=== PATIENT | male | born 1995 | race Caucasian/White ===

== ENCOUNTER 2022-05-16 10:32 | Emergency (ER) | payer OTHER, SELFPAY ==
--- NOTE | ~2022-05-16 | XR_ITS ---
XR finger 2nd RT min 2V DATE: 05/16/2022 10:58 INDICATION: Smashed index finger. Swelling and pain. TECHNIQUE: 4 views COMPARISON: None FINDINGS: There is a comminuted intra-articular fracture of th extending into the midshaft of the mid dle phalanx of the second digit, with approximately 1 cortical width maximal dorsal displacement. No other fracture or dislocation. IMPRESSION: Comminuted intra-articular fracture of the base of the middle phalanx, extending into the midshaft Reviewed, dictated and finalized at location B. IMPRESSION: Comminuted intra-articular fracture of the base of the middle phala nx, extending into the midshaft
[2022-05-16 10:35] VITALS: BP 143/81; PULSE 91; RESP 20; TEMP 36.8; O2SAT 99
--- NOTE | 2022-05-16 10:46 | ED.GENADULT ---
HPI - General Adult General Chief complaint: Extremity Injury, Upper Stated complaint: Right Index Finger Possibly Broken Time Seen by Provider: 05/16/22 10:40 History of Present Illness HPI narrative: Patient is a 27-year-old right-handed male here for evaluation of right second finger pain and swelling for the past day and a half. Patient states that he was at work yesterday when a piece of heavy machinery fell on top of his finger and he is noted pain and swelling ever since. He has attempted ibuprofen and ice with minimal relief of symptoms. States that he is having difficulty flexing and extending the digit due to pain and also notes an intermittent paresthesia. Patient does have a small scrape on the back of his hand sustained in the accident as well. He is unsure of his last tetanus shot. Related Data Home Medications Medication Instructions Recorded Confirmed No Home Medications 05/16/22 05/16/22 Allergies Allergy/AdvReac Type Severity Reaction Status Date / Time No Known Allergies Allergy Verified 05/16/22 10:37 Review of Systems Review of Systems: Gen.: Denies fevers or chills Eyes: Denies eye pain or visual change ENT: Denies congestion Respiratory: Denies shortness of breath or cough CV: Denies chest pain or palpitations GI: Denies abdominal pain nausea, emesis or diarrhea denies burning, urgency, frequency or hematuria Musculoskeletal: Reports right second finger pain. Neuro: Denies numbness, tingling, weakness or focal weakness Skin: Denies rash Except as documented, all other systems reviewed and negative Exam Narrative: Gen: Alert, oriented, no acute distress Eyes: EOMI, no icterus Pulm: Respirations even and unlabored, symmetric thorax expansion, no audible stridor or visible cyanosis CV: Regular rate per telemetry GI: No distension, no voluntary/involuntary guarding Neuro: AOx4, moves all extremities without apparent difficulty or weakness, follows commands MSK: patient is tender to palpation along the right second digit at the PIP, he is able to flex and extend the digit but states it is painful. Digit is slightly swollen at the PIP, finger is held in flexion. Sensation intact distal to area of pain. Brisk capillary refill. No tender to palpation along carpal bones or wrist bones. No snuffbox tenderness. Skin: Patient has 2 abrasions measuring 0.5 cm in length on the dorsal aspect of the right hand just proximal to the second and third digit with no active bleeding and no surrounding erythema. Fingers are stained; patient states is ink. Psych: Normal mood/affect, insight/judgement good, adequate fund of knowledge, recent/remote memory intact Course Consultations Consultation #1: Spoke with Dr. Perez, hand surgery, recommends splinting patient so that patient is flexed at the MP and extended at the IP joints 2-5. Date: 05/16/22 Time: 11:28 Vital Signs Vital signs: Vital Signs Temperature 98.3 F 05/16/22 10:35 Pulse Rate 91 05/16/22 10:35 Respiratory Rate 20 05/16/22 10:35 Blood Pressure 143/81 H 05/16/22 10:35 Pulse Oximetry 99 05/16/22 10:35 Oxygen Delivery Room Air 05/16/22 10:35 Temperature 98.3 F 05/16/22 10:35 Pulse Rate 91 05/16/22 10:35 Respiratory Rate 20 05/16/22 10:35 Blood Pressure 143/81 H 05/16/22 10:35 Pulse Oximetry 99 05/16/22 10:35 Oxygen Delivery Room Air 05/16/22 10:35 Medical Decision Making MDM Narrative Medical decision making narrative: 27-year-old right-handed male here for evaluation of right second finger pain after a direct blow to the dorsum of his hand with a piece of heavy equipment yesterday resulting in a comminuted intra-articular middle phalanx fracture of the right second digit. Spoke with Dr. Perez who recommended a splint for patient and he will see in office. Does not feel strongly about reduction in the ED as it is likely to not stay in place. Patient was placed in a splint in the emergency departm
[2022-05-16] MEDS: TETANUS,DIPHTHERIA,AC PERTUSSIS ADULT (0.5 ML) BOOSTRIX IM (10:56)
== END 2022-05-16 13:42 | disposition home or self-care (01) ==
PROVIDERS: Emergency Provider Emergency Medicine
DX: S62.620A Displaced fracture of middle phalanx of right index finger, initial encounter for closed fracture (principal); Z23 Encounter for immunization; W31.89XA Contact with other specified machinery, initial encounter
CPT/HCPCS: 29130; 73140; 90471; 90715; 99284